=== PATIENT | female | born 1960 | race Caucasian/White ===

== ENCOUNTER → 2017-07-25 | Outpatient (CLI) | payer MEDICAID, MEDICARE ==
--- NOTE | 2017-07-25 13:13 | Diagnostic Imaging Report ---
PROCEDURE: MRI left upper extremity without contrast. TECHNIQUE: Multiplanar, multisequence non contrast-enhanced MRI of the left upper extremity was accomplished. INDICATION: Left shoulder pain and decreased range of motion. FINDINGS: There is no os acromiale or Hill-Sachs deformity. There is a small cystic change or subchondral erosion seen along the anterior aspect of the humeral head just medial to the insertion of the subscapularis tendon measuring 6 mm in size. Alternatively, this could relate to a focal small contusion. There is otherwise no significant marrow signal abnormality. The acromioclavicular joint demonstrates mild hypertrophic arthropathy with small inferior osteophytes. The long head biceps tendon is within its groove. The subscapularis tendon appears intact. The supraspinatus and infraspinatus demonstrate mild increased signal suggestive of tendinosis and low-grade bursal side partial tear. There is minimal edema in the subacromial subdeltoid bursa. No high-grade or full-thickness tear in the rotator cuff. Poor definition of the upper posterior aspect of the labrum on this study without articular contrast is noted without an obvious tear. The muscle bulk and signal of the shoulder is normal. IMPRESSION: 1. 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 2. Supraspinatus and infraspinatus tendinosis and low-grade bursal side partial tears. 3. Subchondral 6 mm focus of marrow edema along the anterior aspect of the humeral head could relate to a focal nonspecific erosion or contusion. Dictated by: Dictated on workstation # [id number]
--- NOTE | 2017-07-27 10:20 | Diagnostic Imaging Report ---
EXAMINATION: Bilateral screening mammogram 2D views with tomosynthesis. The current study was also evaluated with a Computer Aided Detection (CAD) system. INDICATION: Screening. PERSONAL HISTORY: No current complaints stated on the questionnaire. COMPARISON: 05/07/2016. FINDINGS: The breasts are composed of scattered fibroglandular densities. There are scattered benign-appearing calcifications seen. Allowing for technique and positional differences, no suspicious change is seen. IMPRESSION: No significant change. ACR BI-RADS Category 2: Benign findings. Result letter will be mailed to the patient. Note: At least 10% of breast cancer is not imaged by mammography. Dictated by: Dictated on workstation # [id number]
== END ==
LOC: RAD 11:26
PROVIDERS: ATTEND Nurse Practitioner
DX: M19.012 Primary osteoarthritis, left shoulder (principal); M75.112 Incomplete rotator cuff tear or rupture of left shoulder, not specified as traumatic; Z12.31 Encounter for screening mammogram for malignant neoplasm of breast
CPT/HCPCS: 73221; 77067

== ENCOUNTER → 2019-02-01 | Outpatient (CLI) | payer MEDICARE ==
--- NOTE | 2019-02-01 18:51 | Diagnostic Imaging Report ---
PROCEDURE: US Non-ob pelvis comp/trans. TECHNIQUE: Multiple realtime grayscale images were obtained of the pelvis in various projections endovaginally. Transabdominal imaging was also performed. INDICATION: Unspecified abdominal pain. FINDINGS: The uterus is surgically absent. The ovaries cannot be visualized. Moderate overlying bowel gas is present. No mass or fluid collection is seen. IMPRESSION: 1. Status post hysterectomy. 2. Nonvisualized ovaries. No adnexal mass or free fluid is detected. Dictated by: Dictated on workstation # [id number]
== END ==
LOC: RAD 14:25
PROVIDERS: ATTEND Nurse Practitioner
DX: Z12.31 Encounter for screening mammogram for malignant neoplasm of breast (principal); R10.9 Unspecified abdominal pain; Z90.710 Acquired absence of both cervix and uterus
CPT/HCPCS: 76830; 76856

== ENCOUNTER 2020-02-17 13:52 | Emergency (ER) | payer MEDICARE ==
[~2020-02-17] VITALS: Ht 170 cm; Wt 63.0 kg
[2020-02-17 14:06] LABS: BASOPHILS % (AUTO) 0 % (0-10); EOSINOPHILS # (AUTO) 0.1 10^3/uL (0.0-0.3); EOSINOPHILS % (AUTO) 1 % (0-10); HEMATOCRIT 42 % (35-52); HEMOGLOBIN 14.3 G/DL (11.5-16.0); LYMPHOCYTES # (AUTO) 2.1 X 10^3 (1.0-4.0); LYMPHOCYTES % (AUTO) 21 % (12-44); MEAN CORPUSCULAR HEMOGLOBIN 30 PG (25-34); MEAN CORPUSCULAR HGB CONC 34 G/DL (32-36); MEAN CORPUSCULAR VOLUME 89 FL (80-99); MEAN PLATELET VOLUME 10.4 FL (7.4-10.4); MONOCYTES # (AUTO) 0.9 X 10^3 (0.0-1.0); MONOCYTES % (AUTO) 8 % (0-12); NEUTROPHILS # (AUTO) 7.2 X 10^3 (1.8-7.8); NEUTROPHILS % (AUTO) 70 % (42-75); PLATELET COUNT 265 10^3/uL (130-400); RED CELL DISTRIBUTION WIDTH 14.2 % (10.0-14.5); WHITE BLOOD COUNT 10.3 10^3/uL (4.3-11.0)
[2020-02-17 14:11] LABS: ALBUMIN 4.3 GM/DL (3.2-4.5); CHLORIDE 102 MMOL/L (98-107); POTASSIUM 3.7 MMOL/L (3.6-5.0); SODIUM 137 MMOL/L (135-145)
[2020-02-17 14:12] LABS: CALCIUM 9.5 MG/DL (8.5-10.1)
[2020-02-17 14:13] LABS: GLUCOSE 152 MG/DL (70-105)
[2020-02-17 14:14] LABS: FIBRIN DEGRADATION PRODUCTS 0.82 UG/ML (0.00-0.49); INR 0.9 (0.8-1.4); PROTHROMBIN TIME PATIENT 12.8 SEC (12.2-14.7); TOTAL PROTEIN 7.7 GM/DL (6.4-8.2)
[2020-02-17 14:15] LABS: BILIRUBIN,TOTAL 0.5 MG/DL (0.1-1.0); CARBON DIOXIDE 23 MMOL/L (21-32)
[2020-02-17 14:17] LABS: ALKALINE PHOSPHATASE 83 U/L (40-136); GFR ESTIMATED > 60
[2020-02-17 14:18] LABS: BUN/CREATININE RATIO 14
[2020-02-17 14:20] LABS: ALANINE AMINOTRANSFERASE 9 U/L (0-55)
--- NOTE | 2020-02-17 14:20 | Diagnostic Imaging Report ---
Clinical indication: Patient with left-sided facial droop. Exam: Portable chest x-ray upright view. Comparisons: None. Findings: Lungs/pleura: There is a lobulated mass in the right upper lobe region measuring at least 4.0 cm x 4.9 cm in transverse by craniocaudal dimensions. Otherwise, lungs are clear. There is no pneumothorax. There is no pleural effusion. Mediastinum: Unremarkable. Pulmonary vasculature: Unremarkable. Heart: Unremarkable. Bones/extrathoracic soft tissue: There are hypertrophic spurs involving the thoracic spine. Impression: 1: There is a mass in the right upper lobe region. CT scan of the chest with contrast would better evaluate. 2: There is no radiographic evidence of acute cardiopulmonary process. Dictated by: Dictated on workstation # [id number]
--- NOTE | 2020-02-17 14:26 | Diagnostic Imaging Report ---
PROCEDURE: CT head wo r/o stroke. TECHNIQUE: Multiple contiguous axial images were obtained through the brain without the use of intravenous contrast. Auto Exposure Controls were utilized during the CT exam to meet ALARA standards for radiation dose reduction. DATE: February 17, 2020. COMPARISON: CT head March 25, 2015. INDICATION: 60-year-old female, left-sided facial droop. FINDINGS: There is a hyperdense round focus in the region of the right fonseca-white matter junction in the right frontal lobe on axial image 16 measuring 1.7 x 1.7 cm in size. There is very prominent adjacent abnormal low-attenuation. There is a peripherally hyperdense lesion also present measuring 1.6 x 1.5 cm in size in the right cerebellar hemisphere on axial image 8 with prominent adjacent abnormal low-attenuation. There is some associated mass effect. There is no midline shift. The ventricles and cerebral spinal fluid spaces are of normal size and configuration for the patient's age. There is no abnormal extra-axial fluid collection. There are postoperative changes of the right mastoid air cells and left mastoid air cells. Visualized portions of the paranasal sinuses are well-aerated. There are procedural changes of the right side of the skull. IMPRESSION: 1. Round hyperdense lesions involving the right frontal lobe at the level of the fonseca-white matter junction and of the right cerebellar hemisphere with prominent adjacent edema. Metastatic lesions would be the favored differential diagnosis. MRI brain without and with intravenous contrast is recommended for further evaluation. Dictated by: Dictated on workstation # [id number]
--- NOTE | 2020-02-17 14:36 | ED Neurological Problem ---
General Stated Complaint: STROKE LIKE SYMPTOMS Source: patient Exam Limitations: no limitations History of Present Illness Date Seen by Provider: Feb 17, 2020 Time Seen by Provider: 13:53 Initial Comments Here with intermittent left facial droop that has been occurring over the last 2 weeks. He also had some mild left-sided chest discomfort today. Denies nausea, vomiting, weakness or breathing problems. No recent injuries or trauma. Denies weakness of the arms or legs. EMS activated due to the facial symptoms that involve muscles of the left side of the face from the eye down but does not include forhead. She is alert and oriented per EMS and patient agrees. Seen at [facility] last week for similar and had carotid ultrasound study in the interim. Doesn't know of any abnormal results from that. When she was seen at [facility], she apparently had gotten better and decided not to stay and workup wasn't completed. The rest has been done outpatient. She did have behavioral health stay 1-1/2-2 months ago and had some workup then and medication changes. Does admit to smoking cigarettes long-term. Timing/Duration: episodic, waxing and waning Severity: mild Associated Symptoms: No confusion, No fever/chills, No nausea/vomiting, No slurred speech, No trouble walking; weakness (left facial droop) Allergies and Home Medications Allergies Coded Allergies: Penicillins (Unverified Allergy, Mild, 05/15/09) Patient Home Medication List Home Medication List Reviewed: Yes Review of Systems Review of Systems Constitutional: see HPI; No chills, No fever Eyes: See HPI; Denies Blurred Vision, Denies Decreased Acuity Ears, Nose, Mouth, Throat: no symptoms reported Respiratory: No cough, No short of breath Cardiovascular: chest pain (left anterior aching intermittent. No exacerbating or relieving factors); No edema Gastrointestinal: No abdominal pain, No diarrhea, No nausea, No vomiting Genitourinary: no symptoms reported Musculoskeletal: no symptoms reported Skin: no symptoms reported Psychiatric/Neurological: See HPI; Denies Headache; Weakness Endocrine: No Symptoms Reported All Other Systems Reviewed Negative Unless Noted: Yes Past Sttisus-Jefxld-Iyefkk Hx Past Med/Social Hx: Reviewed Nursing Past Med/Soc Hx Patient Social History Alcohol Use: Denies Use Recreational Drug Use: No Smoking Status: Current Everyday Smoker Past Medical History Surgeries: Yes (brain/skull surgery) Section, Tubal Ligation Respiratory: No COPD Cardiac: No Neurological: Yes Traumatic Brain Injury Reproductive Disorders: Yes Genitourinary: No Gastrointestinal: No Cancer: No Psychosocial: Yes Anxiety, Depression Family Medical History Reviewed Nursing Family Hx Cancer Physical Exam Vital Signs Vital Signs - First Documented 02/17/20 13:53 Temp 36.7 Pulse 89 Resp 18 B/P (MAP) 157/96 (116) Pulse Ox 99 Capillary Refill : Height, Weight, BMI Height: '" Weight: lbs. oz. kg; BMI Method: General Appearance: WD/WN, no apparent distress HEENT: PERRL/EOMI, pharynx normal, other (mild facial droop noted on the left side below the eyelid. Does not involve the forehead.) Neck: full range of motion, supple Respiratory: no accessory muscle use, wheezing (she rates wheezes) Cardiovascular: regular rate, rhythm, no murmur Peripheral Pulses: 2+ Dorsalis Pedis (R), 2+ Left Dors-Pedis (L), 2+ Radial Pu lses (R), 2+ Radial Pulses (L) Gastrointestinal: non tender, soft Back: normal inspection, no CVA tenderness, no vertebral tenderness Extremities: non-tender, normal inspection Neurologic/Psychiatric: alert, normal mood/affect, oriented x 3 Crainal Nerves: facial asymmetry (mild left facial droop), facial droop (left); No tongue deviation to R; tongue deviation to L Coordination/Gait: normal finger to nose, normal gait Motor/Sensory: no sensory deficit, no pronator drift Skin: normal color, warm/dry Progress/Results/Core Measures Results/Orders Lab Results Laboratory Tests Test 02/17/20 13:54 02/17/20 14:37 Range/Units White Blood Count 10.3 4.3-11.0 10^3/uL Red Blood Count 4.73 4.35-5.85 10^6/uL Hemoglobin 14.3 11.5-16.0 G/DL Hematocrit 42 35-52 % Mean Corpuscular Volume 89 80-99 FL Mean Corpuscular Hemoglobin 30 25-34 PG Mean Corpuscular Hemoglobin Concent 34 32-36 G/DL Red Cell Distribution Width 14.2 10.0-14.5 % Platelet Count 265 130-400 10^3/uL Mean Platelet Volume 10.4 7.4-10.4 FL Neutrophils (%) (Auto) 70 42-75 % Lymphocytes (%) (Auto) 21 12-44 % Monocytes (%) (Auto) 8 0-12 % Eosinophils (%) (Auto) 1 0-10 % Basophils (%) (Auto) 0 0-10 % Neutrophils # (Auto) 7.2 1.8-7.8 X 10^3 Lymphocytes # (Auto) 2.1 1.0-4.0 X 10^3 Monocytes # (Auto) 0.9 0.0-1.0 X 10^3 Eosinophils # (Auto) 0.1 0.0-0.3 10^3/uL Basophils # (Auto) 0.0 0.0-0.1 10^3/uL Prothrombin Time 12.8 12.2-14.7 SEC INR Comment 0.9 0.8-1.4 Activated Partial Thromboplast Time 29 24-35 SEC D-Dimer 0.82 H 0.00-0.49 UG/ML Sodium Level 137 135-145 MMOL/L Potassium Level 3.7 3.6-5.0 MMOL/L Chloride Level 102 98-107 MMOL/L Carbon Dioxide Level 23 21-32 MMOL/L Anion Gap 12 5-14 MMOL/L Blood Urea Nitrogen 11 7-18 MG/DL Creatinine 0.80 0.60-1.30 MG/DL Estimat Glomerular Filtration Rate > 60 BUN/Creatinine Ratio 14 Glucose Level 152 H 70-105 MG/DL Calcium Level 9.5 8.5-10.1 MG/DL Corrected Calcium 9.3 8.5-10.1 MG/DL Total Bilirubin 0.5 0.1-1.0 MG/DL Aspartate Amino Transf (AST/SGOT) 14 5-34 U/L Alanine Aminotransferase (ALT/SGPT) 9 0-55 U/L Alkaline Phosphatase 83 40-136 U/L Troponin I < 0.028 <0.028 NG/ML B-Type Natriuretic Peptide 23.6 <100.0 PG/ML Total Protein 7.7 6.4-8.2 GM/DL Albumin 4.3 3.2-4.5 GM/DL Urine Color YELLOW Urine Clarity CLEAR Urine pH 5.5 5-9 Urine Specific Pride <=1.005 1.016-1.022 Urine Protein NEGATIVE NEGATIVE Urine Glucose (UA) NEGATIVE NEGATIVE Urine Ketones NEGATIVE NEGATIVE Urine Nitrite NEGATIVE NEGATIVE Urine Bilirubin NEGATIVE NEGATIVE Urine Urobilinogen 0.2 < = 1.0 MG/DL Urine Leukocyte Esterase NEGATIVE NEGATIVE Urine RBC (Auto) TRACE-I NEGATIVE Urine RBC NONE /HPF Urine WBC NONE /HPF Urine Squamous Epithelial Cells RARE /HPF Urine Crystals NONE /LPF Urine Bacteria NEGATIVE /HPF Urine Casts NONE /LPF Urine Mucus NEGATIVE /LPF Urine Culture Indicated NO My Orders Orders - MILI TOLEDO MD Dexamethasone Injection (Decadron Inject (02/17/20 15:00) Medications Given in ED Vital Signs/I&O 02/17/20 02/17/20 13:53 18:36 Temp 36.7 Pulse 89 75 Resp 18 18 B/P (MAP) 157/96 (116) 154/83 (116) Pulse Ox 99 99 Progress Progress Note : Progress Note Seen and evaluated. Stroke protocol initiated and stroke activation initiated on arrival by EMS. Initial stroke scale only a 1 due to mild facial droop but otherwise no significant findings. CT head, chest x-ray, EKG, labs and UA ordered. Monitor patient. 1435: CT does show at least 2 masses in the head with some surrounding edema. There is also mass noted on the chest x-ray concerning for cancer with metastasis. 1452: I have talked with the family regarding findings. Decadron 10 mg IV ordered. We are collecting data from outside facilities and will determine place for transfer. 1525: I had initiated transfer proceedings with [facility] due to the brain lesions with edema. She has had stuttering symptoms that seem to be increasing in frequency per her report and the report of the . We have clouded the films to for evaluation. Pending call back. 1542: I have additionally clouded the previous CT scan of the head of the patient to as well for their evaluation. Monitor patient. 1557: Dr. Christian accepting at [facility]. Pending bed assignment. Family and patient informed and agree with plan. We will call EMS when bed assignment received. Initial ECG Impression Date: Feb 17, 2020 Initial ECG Impression Time: 13:53 Initial ECG Rate: 89 Initial ECG Rhythm: Normal Sinus Comment Sinus rhythm with multiple PVCs. No evidence of ST elevation [place]. After is available for comparison. Interpreted by me. Diagnostic Imaging Diagonstic Imaging: Xray Plain Films/CT/US/NM/MRI: chest Comments [facility], [place] NAME: T[facility]AN R[facility] REC#: [id number] PT STATUS: REG ER : 1960 PHYSICIAN: AMBER IGLESIAS ADMIT DATE: 02/17/20/ER Draft Date of Exam:02/17/20 CHEST 1 VIEW, AP/PA ONLY Clinical indication: Patient with left-sided facial droop. Exam: Portable chest x-ray upright view. Comparisons: None. Findings: Lungs/pleura: There is a lobulated mass in the right upper lobe region measuring at least 4.0 cm x 4.9 cm in transverse by craniocaudal dimensions. Otherwise, lungs are clear. There is no pneumothorax. There is no pleural effusion. Mediastinum: Unremarkable. Pulmonary vasculature: Unremarkable. Heart: Unremarkable. Bones/extrathoracic soft tissue: There are hypertrophic spurs involving the thoracic spine. Impression: 1: There is a mass in the right upper lobe region. CT scan of the chest with contrast would better evaluate. 2: There is no radiographic evidence of acute cardiopulmonary process. Dictated on workstation # [id number] Dict: 02/17/20 1412 Trans: 02/17/20 1420 [facility] [id number] Interpreted by: BLAKE POTTER MD Electronically signed by: Reviewed: Reviewed by Fl Diagonstic Imaging: CT Plain Films/CT/US/NM/MRI: head Comments [facility], [place] NAME: [facility] REC#: [id number] PT STATUS: REG ER : 1960 PHYSICIAN: AMBER IGLESIAS ADMIT DATE: 02/17/20/ER Draft Date of Exam:02/17/20 CT HEAD WO-R/O STROKE PROCEDURE: CT head wo r/o stroke. TECHNIQUE: Multiple contiguous axial images were obtained through the brain without the use of intravenous contrast. Auto Exposure Controls were utilized during the CT exam to meet ALARA standards for radiation dose reduction. DATE: February 17, 2020. COMPARISON: CT head March 25, 2015. INDICATION: 60-year-old female, left-sided facial droop. FINDINGS: There is a hyperdense round focus in the region of the right fonseca-white matter junction in the right frontal lobe on axial image 16 measuring 1.7 x 1.7 cm in size. There is very prominent adjacent abnormal low-attenuation. There is a peripherally hyperdense lesion also present measuring 1.6 x 1.5 cm in size in the right cerebellar hemisphere on axial image 8 with prominent adjacent abnormal low-attenuation. There is some associated mass effect. There is no midline shift. The ventricles and cerebral spinal fluid spaces are of normal size and configuration for the patient's age. There is no abnormal extra-axial fluid collection. There are postoperative changes of the right mastoid air cells and left mastoid air cells. Visualized portions of the paranasal sinuses are well-aerated. There are procedural changes of the right side of the skull. IMPRESSION: 1. Round hyperdense lesions involving the right frontal lobe at the level of the fonseca-white matter junction and of the right cerebellar hemisphere with prominent adjacent edema. Metastatic lesions would be the favored differential diagnosis. MRI brain without and with intravenous contrast is recommended for further evaluation. Dictated on workstation # [id number] Dict: 02/17/20 1415 Trans: 02/17/20 1425 [facility] [id number] Interpreted by: LEA MAS MD Electronically signed by: Reviewed: Reviewed by Me Departure Impression Primary Impression: Lesion of right frontal lobe of brain Additional Impressions: Cerebellar lesion Mass of upper lobe of right lung Facial droop Disposition: XFER SHT-TRM HOSP Condition: Stable Transfer Transfer Reason: Exceeds level of care Time Spoke to Accepting Phy: 15:57 Transfer Time: 18:06 Transfer Facility: [place], [place], Dr. Christian accepting Method of Transfer: EMS Departure-Patient Inst. Referrals: MARITZA KRAMER MD (PCP/Family) Primary Care Physician MILI TOLEDO MD Feb 17, 2020 14:36
[2020-02-17 14:49] LABS: BILIRUBIN,URINE NEGATIVE (NEGATIVE); CLARITY,URINE CLEAR; COLOR,URINE YELLOW; GLUCOSE, URINE (UA) NEGATIVE (NEGATIVE); KETONES,URINE NEGATIVE (NEGATIVE); LEUKOCYTE ESTERASE ,URINE NEGATIVE (NEGATIVE); NITRITE,URINE NEGATIVE (NEGATIVE); PH,URINE 5.5 (5-9); PROTEIN,URINE NEGATIVE (NEGATIVE)
--- NOTE | 2020-02-17 14:50 | NUR ---
SEE LIST FOR CURRENT MEDS
[2020-02-17 14:59] LABS: BACTERIA,URINE NEGATIVE /HPF; SQUAMOUS EPITHELIAL CELL,UR RARE /HPF
[2020-02-17] MEDS ORDERED: DEXAMETHASONE 10 MG/ML (DECADRON) 1 ML VIAL IV ONE (15:00)
--- NOTE | 2020-02-17 18:06 | NUR ---
EMS NOTIFIED OF TRANSFER
[2020-02-17 18:36] VITALS: BP 154/83
== END 2020-02-17 18:39 | disposition short-term general hospital (02) ==
LOC: EDUNIT# 13:52 → ER 13:53
DX: G93.9 Disorder of brain, unspecified (principal); R91.8 Other nonspecific abnormal finding of lung field; R29.810 Facial weakness; F17.210 Nicotine dependence, cigarettes, uncomplicated; Z88.0 Allergy status to penicillin; Z87.820 Personal history of traumatic brain injury
CPT/HCPCS: 36415; 70450; 71045; 80053; 81000; 83880; 84484; 85025; 85379; 85610; 85730; 93005; 93041

== ENCOUNTER 2023-02-14 16:11 | Emergency (ER) | payer OTHER, MEDICARE ==
[~2023-02-14] VITALS: Ht 172 cm; Wt 67.0 kg
[2023-02-14] MEDS ORDERED: morphine INJ 10 MG/ML 1ML (SYR OR VIAL) IM STA (16:37)
--- NOTE | 2023-02-14 17:07 | Diagnostic Imaging Report ---
SHOULDER, RIGHT, 3 VIEWS INDICATION: Right shoulder pain. COMPARISON: Chest radiograph of 02/17/2020. TECHNIQUE: Three views of the right shoulder. FINDINGS: There is an acute simple oblique fracture in the distal clavicle. No intra-articular extension of the fracture. 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 Spiculated architectural distortion of the medial aspect of the right upper lobe is likely due to the site of prior lung cancer treatment. IMPRESSION: Acute simple fracture in the distal clavicle does not have intra-articular extension. Dictated by: Dictated on workstation # [id number]
--- NOTE | 2023-02-14 17:58 | ED Fall/Injury ---
General Chief Complaint: Trauma-Non Activation Stated Complaint: FALL/RIGHT SHOULDER INJURY Nursing Triage Note: PT STATES SHE TRIPPED OVER A BROOM, CC OF RT SHOULDER PAIN AND PAIN UNDER BOTH ARMS, DENIES HEAD OR NECK PAIN, HX OF BRAIN CA, ON HOSPICE Source: patient Exam Limitations: no limitations History of Present Illness Date Seen by Provider: Feb 14, 2023 Time Seen by Provider: 16:15 Initial Comments This 63-year-old woman presents to the emergency room with pain and disfigurement of the right shoulder after having a fall in her home. She tripped on a broom and fell onto the right shoulder. She denies any head or neck injury. She is presently on hospice due to breast cancer with brain metastases. Allergies and Home Medications Allergies Coded Allergies: Penicillins (Unverified Allergy, Mild, 05/15/09) Patient Home Medication List Home Medication List Reviewed: Yes Oxycodone HCl/Acetaminophen (Percocet 5-325 mg Tablet) 1 Each Tablet, 1 TAB PO Q6H PRN for PAIN BREAKTROUGH Prescribed by: GERALD DIA on 02/14/23 1945 Review of Systems Review of Systems Constitutional: no symptoms reported Eyes: No Symptoms Reported Ears, Nose, Mouth, Throat: no symptoms reported Respiratory: see HPI Cardiovascular: no symptoms reported Gastrointestinal: no symptoms reported Genitourinary: no symptoms reported Musculoskeletal: see HPI Skin: no symptoms reported Psychiatric/Neurological: No Symptoms Reported Past Nlsuqqm-Kfqulx-Ecvnth Hx Patient Social History Tobacco Use?: Yes Tobacco type used: Cigarettes Smoking Status: Current Everyday Smoker Substance use?: No Alcohol Use?: No Immunizations Up To Date Second COVID19 Vaccination Sunil: YES Past Medical History Surgery/Hospitalization HX: LUNG CA WITH METS TO BRAIN, HTN, TYPE II DIABETIC, HYST, PORT PLACED Surgeries: Yes (brain/skull surgery) Section, Tubal Ligation Respiratory: Yes COPD Cardiac: No Neurological: Yes Traumatic Brain Injury Reproductive Disorders: Yes Sexually Transmitted Disease: Yes (genital wart) Genitourinary: No Gastrointestinal: No Musculoskeletal: Yes (arthritis/degenerative disc disease/torn rotator cuff right shoulder) Endocrine: No HEENT: No Cancer: Yes Brain, Lung Psychosocial: Yes Anxiety, Depression Blood Disorders: No Adverse Reaction/Blood Tranf: No Family Medical History Cancer Physical Exam Vital Signs Vital Signs - First Documented 02/14/23 16:20 Temp 37.4 Pulse 72 Resp 18 B/P (MAP) 138/93 (108) Pulse Ox 96 O2 Delivery Room Air Capillary Refill : Less Than 3 Seconds Height, Weight, BMI Height: '" Weight: lbs. oz. kg; 22.00 BMI Method: General Appearance: WD/WN, mild distress, thin HEENT: PERRL/EOMI, normal ENT inspection Neck: non-tender, normal inspection Cardiovascular: regular rate, rhythm, no edema, no murmur Respiratory: chest non-tender, lungs clear, normal breath sounds, no respiratory distress Gastrointestinal: non tender, soft Extremities: other (Disfigurement of the right shoulder at the distal clavicle. Shoulder joint seems to be intact. Focal tenderness in this area. Range of motion decreased.) Neurologic/Psychiatric: alert, normal mood/affect, oriented x 3 Skin: normal color, warm/dry Joseph Coma Score Best Eye Response: (4) Open Spontaneously Best Verbal Response: (5) Oriented Best Motor Response: (6) Obeys Commands [place] Total: 15 Progress/Results/Core Measures Results/Orders My Orders Orders - GERALD BUENROSTRO MD Shoulder, Right, 3 Views (02/14/23 16:15) Morphine Injection (Morphine Injection (02/14/23 16:37) Vital Signs/I&O 02/14/23 02/14/23 16:20 18:20 Temp 37.4 36.2 Pulse 72 85 Resp 18 16 B/P (MAP) 138/93 (108) 129/70 Pulse Ox 96 96 O2 Delivery Room Air Room Air Blood Pressure Mean: 108 Progress Progress Note : Progress Note Patient was treated with morphine prior to x-rays. X-ray confirmed a distal clavicle fracture. Patient was fitted with a sling. She was prescribed a small quantity of Percocet to use as breakthrough pain over her long-acting morphine medication. See discharge instructions for further discussion. Diagnostic Imaging Diagonstic Imaging: Xray Plain Films/CT/US/NM/MRI: other (Right shoulder) Comments NAME: TAPAN RICH [facility]un [facility] REC#: [id number] PT STATUS: REG ER : 1960 PHYSICIAN: GERALD BUENROSTRO MD ADMIT DATE: 02/14/23/ER Signed Date of Exam:02/14/23 SHOULDER, RIGHT, 3 VIEWS SHOULDER, RIGHT, 3 VIEWS INDICATION: Right shoulder pain. COMPARISON: Chest radiograph of 02/17/2020. TECHNIQUE: Three views of the right shoulder. FINDINGS: There is an acute simple oblique fracture in the distal clavicle. No intra-articular extension of the fracture. 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 Spiculated architectural distortion of the medial aspect of the right upper lobe is likely due to the site of prior lung cancer treatment. IMPRESSION: Acute simple fracture in the distal clavicle does not have intra-articular extension. Dictated by: Dictated on workstation # [id number] Dict: 02/14/23 1700 Trans: 02/14/231717 AS6 [id number] Interpreted by: JERAMIE HUMPHREY MD Electronically signed by: JERAMIE HUMPHREY MD 02/14/231717 Departure Impression Primary Impression: Closed fracture of distal clavicle Qualified Codes: S42.034A - Nondisplaced fracture of lateral end of right clavicle, initial encounter for closed fracture Additional Impression: Fall on same level from tripping Disposition: 01 HOME, SELF-CARE Condition: Stable Departure-Patient Inst. Decision time for Depature: 18:05 Referrals: NO,LOCAL PHYSICIAN (PCP) Primary Care Physician ZELALEM MALHOTRA MD, MICHAEL P MD Patient Instructions: Clavicle fracture Add. Discharge Instructions: Keep your arm in the sling as much as possible. You may ice in 20-minute intervals to help reduce pain and swelling. Continue using your long-acting morphine for primary pain control. Use the Percocet prescribed for breakthrough pain only. Follow-up with an orthopedic provider for monitoring of the healing of this fracture. Alternatively, you may follow-up with your primary care provider if they are comfortable monitoring the healing of this fracture. Contact information for Dr. Malhotra and Dr. Whalen as below. Return to care if you have worsening symptoms despite following these instructions. All discharge instructions reviewed with patient and/or family. Voiced understanding. Scripts Oxycodone HCl/Acetaminophen (Percocet 5-325 mg Tablet) 1 Each Tablet 1 TAB PO Q6H PRN for PAIN BREAKTROUGH MDD 6 TABS, #10 TAB Prov: GERALD BUENROSTRO MD 02/14/23 GERALD BUENROSTRO MD Feb 14, 2023 17:58
[2023-02-14] MEDS ORDERED: OXYC1TAB87 PO (18:08)
[2023-02-14 18:20] VITALS: BP 129/70
== END 2023-02-14 18:20 | disposition home or self-care (01) ==
LOC: EDUNIT# 16:11 → ER 16:14
DX: S42.031A Displaced fracture of lateral end of right clavicle, initial encounter for closed fracture (principal); F17.210 Nicotine dependence, cigarettes, uncomplicated; W01.0XXA Fall on same level from slipping, tripping and stumbling without subsequent striking against object, initial encounter
CPT/HCPCS: 73030